=== PATIENT | male | born 1995 | race African-American/Black ===

== ENCOUNTER 2018-06-20 18:37 | Emergency (ER) | payer SELFPAY ==
[~2018-06-20] VITALS: Ht 177.8 cm; Wt 57.9 kg
[2018-06-20 18:45] VITALS: BP 114/74
[2018-06-20] MEDS ORDERED: ALBUTEROL SULFATE 2.5 MG/3 ML NPPB SCH (19:00)
--- NOTE | 2018-06-20 21:03 | NUR ---
PT TO ROOM VIA LOBBY
[2018-06-20] MEDS ORDERED: ALBUTEROL SULFATE 2.5 MG/3 ML ONE (21:07)
== END 2018-06-20 22:01 | disposition home or self-care (01) ==
LOC: ED 21:53
DX: J20.8 Acute bronchitis due to other specified organisms (principal)
CPT/HCPCS: 71046; 93005; 94640; 99283; J7512; J7613